=== PATIENT | female | born 1950 | race Caucasian/White ===

== ENCOUNTER → 2020-10-24 | Outpatient (CLI) | payer MEDICARE, OTHER ==
[~2020-10-24] MED LIST: ALBUTEROL1.25 MG/3 INH; ASPIRIN EC81 MG PO; ASPIRIN81 MG PO; BENICAR 20 MG T20 MG PO; CARAFATE1 GM PO; CLINDAMYCIN HC150 MG PO; CYCLOBENZAPRINE10 MG PO; DAILY VALUE1 EACH PO; ERYTHROMYCIN OU; FLEXERIL 10 MG10 MG PO; GABAPENTIN100 MG PO; GLUCOPHAGE 500500 MG PO; HYDROCODON-ACE1 EAC4 PO; IMODIUM CAP 2 MG2 MG PO; LASIX20 MG PO; LASIX40 MG PO; LIPITOR TAB 2020 MG PO; LIPITOR40 MG PO; MAGNESIUM400 M2 PO; METOPROLOL TART50 MG PO; NEURONTIN 100100 MG PO; NEXIUM20 MG PO; NEXIUM40 MG PO; NITRO-TIME6.5 MG PO; NORCO 10-325 T1 EACH PO; PERCOCET 5/325 T1 EA PO; PLETAL 100 MG100 MG PO; PRILOSEC OTC20 MG PO; PROBIOTIC1 EAC1 PO; PULMICORT0.25 MG/1 INH; QVAR REDIHALE10.6 G1 INH; QVAR8.7 G1 INH; SINGULAIR10 MG PO; SPIRIVA HANDIH18 MCG INH; VISTARIL 25 MG25 MG PO; VITAMIN B-121000 MC3 PO; VITAMIN B12-FO1 EACH PO; XOPENEX HFA15 GM INH; XOPENEX1.25 MG/3 HHN
[2020-10-24 14:44] LABS: HEMOGLOBIN 14.2 gm/dl (12.3-15.3); RED BLOOD COUNT 4.69 M/UL (4.00-5.10); WHITE BLOOD COUNT 7.9 K/UL (4.5-11.0)
== END ==
LOC: OPSV2 13:00
PROVIDERS: Anesthesiology Pain Medicine
DX: Z01.818 Encounter for other preprocedural examination (principal)
CPT/HCPCS: 36415; 71046; 80048; 81001; 85025; 93005

== ENCOUNTER 2020-10-31 07:50 | Day surgery (SDC) | payer MEDICARE, OTHER ==
[~2020-10-31] VITALS: Ht 152.4 cm; Wt 59.9 kg
[~2020-10-31 07:50] MED LIST changes: -ALBUTEROL1.25 MG/3 INH; -ASPIRIN81 MG PO; -CARAFATE1 GM PO; -CLINDAMYCIN HC150 MG PO; -CYCLOBENZAPRINE10 MG PO; -DAILY VALUE1 EACH PO; -ERYTHROMYCIN OU; -GABAPENTIN100 MG PO; -HYDROCODON-ACE1 EAC4 PO; -IMODIUM CAP 2 MG2 MG PO; -LASIX20 MG PO; -LIPITOR40 MG PO; -MAGNESIUM400 M2 PO; -NEURONTIN 100100 MG PO; -NEXIUM20 MG PO; -NEXIUM40 MG PO; -NITRO-TIME6.5 MG PO; -PERCOCET 5/325 T1 EA PO; -PROBIOTIC1 EAC1 PO; -PULMICORT0.25 MG/1 INH; -QVAR REDIHALE10.6 G1 INH; -SINGULAIR10 MG PO; -SPIRIVA HANDIH18 MCG INH; -VITAMIN B-121000 MC3 PO
[2020-10-31] MEDS ORDERED: GABAPENTIN100 MG PO (09:11)
[2020-10-31] MEDS ORDERED: ERYTHROMYCIN OU (09:14)
[2020-10-31] MEDS ORDERED: NEXIUM40 MG PO (09:14)
[2020-10-31] MEDS ORDERED: MAGNESIUM400 M2 PO ×2 (09:15→16:58)
[2020-10-31] MEDS ORDERED: PROBIOTIC1 EAC1 PO (09:20)
[2020-10-31] MEDS ORDERED: CYCLOBENZAPRINE10 MG PO (16:52)
[2020-10-31] MEDS ORDERED: NEURONTIN 100100 MG PO (16:52)
[2020-10-31] MEDS ORDERED: HYDROCODON-ACE1 EAC4 PO (16:53)
[2020-10-31] MEDS ORDERED: QVAR REDIHALE10.6 G1 INH (16:54)
[2020-10-31] MEDS ORDERED: NEXIUM20 MG PO (16:55)
[2020-10-31] MEDS ORDERED: ASPIRIN81 MG PO (16:55)
[2020-10-31] MEDS ORDERED: SINGULAIR10 MG PO (16:55)
[2020-10-31] MEDS ORDERED: IMODIUM CAP 2 MG2 MG PO (16:56)
[2020-10-31] MEDS ORDERED: LASIX20 MG PO (16:56)
[2020-10-31] MEDS ORDERED: VITAMIN B-121000 MC3 PO (16:57)
[2020-10-31] MEDS ORDERED: CARAFATE1 GM PO (16:57)
[2020-10-31] MEDS ORDERED: ALBUTEROL1.25 MG/3 INH (16:57)
[2020-10-31] MEDS ORDERED: DAILY VALUE1 EACH PO (16:57)
[2020-10-31] MEDS ORDERED: LIPITOR40 MG PO (16:58)
[2020-10-31] MEDS ORDERED: NITRO-TIME6.5 MG PO (21:40)
[2020-11-01] MEDS ORDERED: SPIRIVA HANDIH18 MCG INH ×2 (10:14→11:16)
[2020-11-01] MEDS ORDERED: PERCOCET 5/325 T1 EA PO ×2 (10:14→10:34)
[2020-11-01] MEDS ORDERED: CLINDAMYCIN HC150 MG PO (10:14)
[2020-11-01] MEDS ORDERED: PULMICORT0.25 MG/1 INH (10:14)
== END 2020-11-01 13:18 | disposition home or self-care (01) ==
LOC: OR 07:50 → M/S 14:34 → OR 11-01 13:18
PROVIDERS: Anesthesiology Pain Medicine
PROC: 00HU3MZ Insertion of Neurostimulator Lead into Spinal Canal, Percutaneous Approach (ICD-10-PCS; 2020-10-31)
PROC: 00HU3MZ Insertion of Neurostimulator Lead into Spinal Canal, Percutaneous Approach (ICD-10-PCS; 2020-10-31)
PROC: 0JH73DZ Insertion of Multiple Array Stimulator Generator into Back Subcutaneous Tissue and Fascia, Percutaneous Approach (ICD-10-PCS; principal; 2020-10-31 07:30)
DX: G89.29 Other chronic pain (principal); M48.07 Spinal stenosis, lumbosacral region; M48.061 Spinal stenosis, lumbar region without neurogenic claudication; M47.26 Other spondylosis with radiculopathy, lumbar region; M47.27 Other spondylosis with radiculopathy, lumbosacral region; M51.26 Other intervertebral disc displacement, lumbar region; I25.10 Atherosclerotic heart disease of native coronary artery without angina pectoris; I65.21 Occlusion and stenosis of right carotid artery; I71.4 Abdominal aortic aneurysm, without rupture; E78.5 Hyperlipidemia, unspecified; E11.51 Type 2 diabetes mellitus with diabetic peripheral angiopathy without gangrene; K21.9 Gastro-esophageal reflux disease without esophagitis; I12.9 Hypertensive chronic kidney disease with stage 1 through stage 4 chronic kidney disease, or unspecified chronic kidney disease; E11.22 Type 2 diabetes mellitus with diabetic chronic kidney disease; N18.9 Chronic kidney disease, unspecified; F17.210 Nicotine dependence, cigarettes, uncomplicated; I25.2 Old myocardial infarction; J43.9 Emphysema, unspecified; M79.7 Fibromyalgia; M46.1 Sacroiliitis, not elsewhere classified; E11.40 Type 2 diabetes mellitus with diabetic neuropathy, unspecified; Z20.822 Contact with and (suspected) exposure to COVID-19; Z88.0 Allergy status to penicillin; Z88.1 Allergy status to other antibiotic agents; Z88.5 Allergy status to narcotic agent; Z88.6 Allergy status to analgesic agent; Z88.8 Allergy status to other drugs, medicaments and biological substances; Z91.041 Radiographic dye allergy status; Z79.82 Long term (current) use of aspirin; Z79.84 Long term (current) use of oral hypoglycemic drugs; Z79.2 Long term (current) use of antibiotics; Z79.891 Long term (current) use of opiate analgesic; Z79.899 Other long term (current) drug therapy; Z86.73 Personal history of transient ischemic attack (TIA), and cerebral infarction without residual deficits; Z95.5 Presence of coronary angioplasty implant and graft; Z85.41 Personal history of malignant neoplasm of cervix uteri; Z96.82 Presence of neurostimulator
CPT/HCPCS: 0; 72070; 76000; 82962; 94640; 94664; 94760; C1778; C1787; C1820; J1100; J2001; J2370; J2405; J2704; J3370; J7030; J7120; Q9962

== ENCOUNTER → 2021-03-10 | Outpatient (CLI) | payer MEDICARE, OTHER ==
[~2021-03-10] MED LIST changes: +ALBUTEROL1.25 MG/3 INH; +ASPIRIN81 MG PO; +CARAFATE1 GM PO; +CLINDAMYCIN HC150 MG PO; +CYCLOBENZAPRINE10 MG PO; +DAILY VALUE1 EACH PO; +ERYTHROMYCIN OU; +GABAPENTIN100 MG PO; +HYDROCODON-ACE1 EAC4 PO; +IMODIUM CAP 2 MG2 MG PO; +LASIX20 MG PO; +LIPITOR40 MG PO; +MAGNESIUM400 M2 PO; +NEURONTIN 100100 MG PO; +NEXIUM20 MG PO; +NEXIUM40 MG PO; +NITRO-TIME6.5 MG PO; +PERCOCET 5/325 T1 EA PO; +PROBIOTIC1 EAC1 PO; +PULMICORT0.25 MG/1 INH; +QVAR REDIHALE10.6 G1 INH; +SINGULAIR10 MG PO; +SPIRIVA HANDIH18 MCG INH; +VITAMIN B-121000 MC3 PO
== END ==
LOC: KOH-I 10:47
DX: F17.210 Nicotine dependence, cigarettes, uncomplicated (principal)
CPT/HCPCS: 71271